=== PATIENT | male | born 1940 | race Two or more races ===

== ENCOUNTER 2017-06-06 07:09 | Outpatient (CLI) | payer OTHER, BC ==
[~2017-06-06 07:09] MED LIST: AMOX1TAB5 PO; ANORO ELLIPTA1 EACH IH; AVALIDE 300-12.1 TAB PO; AVAPRO75 MG PO; CIPRODEX OTIC7.5 ML OT; CRESTOR20 MG; DALIRESP500 MCG PO; EMTRIVA200 MG; EMTRIVA200 MG PO; EPIVIR300 MG PO; FENOFIBRATE145 MG PO; GLIMEPIRIDE4 MG; GLUCOPHAGE XR500 MG PO; LEVAQUIN750 MG PO; NORVIR; NORVIR100 M1 PO; PNEU16DI2; PROTONIX20 MG; RESTORIL30 MG PO; REYATAZ300 MG; REYATAZ300 MG PO; SYNTHROID50 MCG PO; TRADJENTA5 MG PO; VENTOLIN HFA18 GM IH; XANAX0.25 MG PO
== END 2017-06-06 07:53 | disposition home or self-care (01) ==
LOC: LAB 07:09
DX: N18.6 End stage renal disease (principal)

== ENCOUNTER 2017-06-14 06:39 | Outpatient (CLI) | payer OTHER, BC | END 2017-06-14 06:50 | disposition home or self-care (01) | LOC: LAB 06:39 | DX: N18.4 Chronic kidney disease, stage 4 (severe) (principal); E87.5 Hyperkalemia ==

== ENCOUNTER 2017-06-19 06:10 | Outpatient (CLI) | payer OTHER, BC | END 2017-06-19 06:20 | disposition home or self-care (01) | LOC: LAB 06:10 | DX: E11.65 Type 2 diabetes mellitus with hyperglycemia (principal); D64.89 Other specified anemias; D68.8 Other specified coagulation defects; I11.9 Hypertensive heart disease without heart failure; E78.79 Other disorders of bile acid and cholesterol metabolism ==

== ENCOUNTER 2017-06-19 08:01 | Outpatient (CLI) | payer OTHER, BC | END 2017-06-19 08:05 | disposition home or self-care (01) | LOC: RAD 08:01 | DX: M77.31 Calcaneal spur, right foot (principal); M77.32 Calcaneal spur, left foot ==

== ENCOUNTER → 2017-06-21 06:53 | Outpatient (CLI) | payer OTHER, BC | END | disposition home or self-care (01) | LOC: LAB 06:53 | DX: N18.4 Chronic kidney disease, stage 4 (severe) (principal) ==

== ENCOUNTER → 2017-07-15 | Emergency (ER) | payer OTHER, BC ==
[~2017-07-15] VITALS: Ht 177.8 cm; Wt 70.8 kg
[~2017-07-15] MED LIST changes: +ASPIR 8181 MG; +CLARITIN10 M1 PO; +HYDRALAZINE HCL50 MG; +MAG-OXIDE400 MG; +PLAVIX75 MG; +TOPROL XL50 M1; +TUSSI PRES-B L120 M1 PO; +ZITHROMAX TRI-500 MG PO
== END | disposition home or self-care (01) ==
LOC: ER 12:13
DX: J06.9 Acute upper respiratory infection, unspecified (principal); J11.1 Influenza due to unidentified influenza virus with other respiratory manifestations

== ENCOUNTER 2017-07-24 06:29 | Outpatient (CLI) | payer OTHER, BC | END 2017-07-24 06:39 | disposition home or self-care (01) | LOC: LAB 06:29 | DX: I11.9 Hypertensive heart disease without heart failure (principal); E78.00 Pure hypercholesterolemia, unspecified; D68.8 Other specified coagulation defects; E11.65 Type 2 diabetes mellitus with hyperglycemia; Z99.2 Dependence on renal dialysis; E78.2 Mixed hyperlipidemia; N39.0 Urinary tract infection, site not specified; I10 Essential (primary) hypertension; N18.2 Chronic kidney disease, stage 2 (mild); E11.21 Type 2 diabetes mellitus with diabetic nephropathy ==

== ENCOUNTER 2017-08-02 06:28 | Outpatient (CLI) | payer OTHER, BC | END 2017-08-02 06:46 | disposition home or self-care (01) | LOC: LAB 06:28 | DX: D63.1 Anemia in chronic kidney disease (principal); N18.4 Chronic kidney disease, stage 4 (severe); D51.3 Other dietary vitamin B12 deficiency anemia; D50.8 Other iron deficiency anemias; C18.7 Malignant neoplasm of sigmoid colon; B20 Human immunodeficiency virus [HIV] disease; I10 Essential (primary) hypertension; E08.65 Diabetes mellitus due to underlying condition with hyperglycemia; Z95.5 Presence of coronary angioplasty implant and graft; I25.110 Atherosclerotic heart disease of native coronary artery with unstable angina pectoris; D51.8 Other vitamin B12 deficiency anemias; R97.0 Elevated carcinoembryonic antigen [CEA]; R97.8 Other abnormal tumor markers; N40.0 Benign prostatic hyperplasia without lower urinary tract symptoms; I50.89 Other heart failure ==

== ENCOUNTER 2017-08-02 06:38 | Outpatient (CLI) | payer OTHER, BC | END 2017-08-02 06:45 | disposition home or self-care (01) | LOC: LAB 06:38 | DX: J90 Pleural effusion, not elsewhere classified (principal) ==

== ENCOUNTER 2017-08-03 06:35 | Outpatient (CLI) | payer OTHER, BC | END 2017-08-03 06:44 | disposition home or self-care (01) | LOC: SONOGRAMA 06:35 | DX: D63.1 Anemia in chronic kidney disease (principal); N18.4 Chronic kidney disease, stage 4 (severe); D51.3 Other dietary vitamin B12 deficiency anemia; D50.8 Other iron deficiency anemias; C18.7 Malignant neoplasm of sigmoid colon; B20 Human immunodeficiency virus [HIV] disease; I10 Essential (primary) hypertension; E08.65 Diabetes mellitus due to underlying condition with hyperglycemia; Z95.5 Presence of coronary angioplasty implant and graft; Z98.61 Coronary angioplasty status; I25.110 Atherosclerotic heart disease of native coronary artery with unstable angina pectoris; Z85.038 Personal history of other malignant neoplasm of large intestine ==

== ENCOUNTER → 2017-08-10 | Outpatient (CLI) | payer OTHER, BC | END | disposition home or self-care (01) | LOC: LAB 07:55 | DX: E11.65 Type 2 diabetes mellitus with hyperglycemia (principal); E11.21 Type 2 diabetes mellitus with diabetic nephropathy ==

== ENCOUNTER 2017-08-11 07:18 | Outpatient (CLI) | payer OTHER, BC | END 2017-08-11 07:21 | disposition home or self-care (01) | LOC: NUCLEAR 07:18 | DX: I11.9 Hypertensive heart disease without heart failure (principal); I25.10 Atherosclerotic heart disease of native coronary artery without angina pectoris; I24.8 Other forms of acute ischemic heart disease | CPT/HCPCS: 78452; 93017; A9500; J0153 ==

== ENCOUNTER 2017-08-30 22:42 | Emergency (ER) | payer OTHER, BC ==
[~2017-08-30] VITALS: Ht 172.7 cm; Wt 77.1 kg
== END 2017-08-31 02:30 | disposition left against medical advice (07) ==
LOC: ER 22:42
DX: Z53.20 Procedure and treatment not carried out because of patient's decision for unspecified reasons (principal)

== ENCOUNTER 2017-08-31 08:38 | Emergency (ER) | payer OTHER, BC ==
[~2017-08-31] VITALS: Ht 177.8 cm; Wt 71.7 kg
== END 2017-08-31 11:16 | disposition home or self-care (01) ==
LOC: ER 08:38
DX: S80.811A Abrasion, right lower leg, initial encounter (principal); W45.8XXA Other foreign body or object entering through skin, initial encounter; Y93.89 Activity, other specified; Y92.89 Other specified places as the place of occurrence of the external cause; Y99.8 Other external cause status

== ENCOUNTER → 2017-09-05 06:22 | Outpatient (CLI) | payer OTHER, BC | END | disposition home or self-care (01) | LOC: LAB 06:22 | DX: D63.1 Anemia in chronic kidney disease (principal); N18.4 Chronic kidney disease, stage 4 (severe); D51.3 Other dietary vitamin B12 deficiency anemia; D50.8 Other iron deficiency anemias; C18.7 Malignant neoplasm of sigmoid colon; B20 Human immunodeficiency virus [HIV] disease; I10 Essential (primary) hypertension; E08.65 Diabetes mellitus due to underlying condition with hyperglycemia; Z95.5 Presence of coronary angioplasty implant and graft; Z98.61 Coronary angioplasty status; I25.110 Atherosclerotic heart disease of native coronary artery with unstable angina pectoris; N18.3 Chronic kidney disease, stage 3 (moderate); E11.21 Type 2 diabetes mellitus with diabetic nephropathy; R80.8 Other proteinuria ==

== ENCOUNTER → 2017-09-11 06:18 | Outpatient (CLI) | payer OTHER, BC | END | disposition home or self-care (01) | LOC: LAB 06:18 | DX: D68.8 Other specified coagulation defects (principal); D64.89 Other specified anemias; E11.65 Type 2 diabetes mellitus with hyperglycemia; E11.21 Type 2 diabetes mellitus with diabetic nephropathy; E78.2 Mixed hyperlipidemia; B20 Human immunodeficiency virus [HIV] disease ==

== ENCOUNTER 2017-09-13 10:44 | Outpatient (CLI) | payer OTHER, BC | END 2017-09-13 10:51 | disposition home or self-care (01) | LOC: LAB 10:44 | DX: Z12.11 Encounter for screening for malignant neoplasm of colon (principal) ==

== ENCOUNTER 2017-09-18 06:52 | Outpatient (CLI) | payer OTHER, BC | END 2017-09-18 06:56 | disposition home or self-care (01) | LOC: LAB 06:52 | DX: N39.0 Urinary tract infection, site not specified (principal) ==

== ENCOUNTER 2017-09-20 18:53 | Emergency (ER) | payer OTHER, BC ==
[~2017-09-20] VITALS: Ht 177.8 cm; Wt 70.8 kg
== END 2017-09-20 23:56 | disposition home or self-care (01) ==
LOC: ER 18:53
DX: K80.20 Calculus of gallbladder without cholecystitis without obstruction (principal); R19.03 Right lower quadrant abdominal swelling, mass and lump; R10.31 Right lower quadrant pain

== ENCOUNTER 2017-09-30 14:30 | Inpatient (IN) | payer OTHER, BC ==
[~2017-09-30] VITALS: Ht 177.8 cm; Wt 71.7 kg
[2017-10-13] MEDS ORDERED: LEVAQUIN500 MG PO (17:10)
== END 2017-10-13 19:22 | disposition home or self-care (01) | DRG 444 ==
LOC: ER 14:30 → MEDI 20:38
PROC: BW40ZZZ Ultrasonography of Abdomen (ICD-10-PCS; 2017-09-30)
PROC: 30233N1 Transfusion of Nonautologous Red Blood Cells into Peripheral Vein, Percutaneous Approach (ICD-10-PCS; 2017-10-01)
PROC: BF37ZZZ Magnetic Resonance Imaging (MRI) of Pancreas (ICD-10-PCS; 2017-10-02)
PROC: 3E0336Z Introduction of Nutritional Substance into Peripheral Vein, Percutaneous Approach (ICD-10-PCS; 2017-10-02)
PROC: CF1C1ZZ Planar Nuclear Medicine Imaging of Hepatobiliary System, All using Technetium 99m (Tc-99m) (ICD-10-PCS; 2017-10-03)
PROC: 02HV33Z Insertion of Infusion Device into Superior Vena Cava, Percutaneous Approach (ICD-10-PCS; 2017-10-03)
PROC: 0F9430Z Drainage of Gallbladder with Drainage Device, Percutaneous Approach (ICD-10-PCS; principal; 2017-10-05)
DX: K80.00 Calculus of gallbladder with acute cholecystitis without obstruction (principal); B20 Human immunodeficiency virus [HIV] disease; N18.4 Chronic kidney disease, stage 4 (severe); N17.8 Other acute kidney failure; E11.22 Type 2 diabetes mellitus with diabetic chronic kidney disease; Z85.038 Personal history of other malignant neoplasm of large intestine; J43.8 Other emphysema; I13.10 Hypertensive heart and chronic kidney disease without heart failure, with stage 1 through stage 4 chronic kidney disease, or unspecified chronic kidney disease; I25.2 Old myocardial infarction; Z98.61 Coronary angioplasty status; B96.29 Other Escherichia coli [E. coli] as the cause of diseases classified elsewhere; D63.1 Anemia in chronic kidney disease; D51.1 Vitamin B12 deficiency anemia due to selective vitamin B12 malabsorption with proteinuria; D50.0 Iron deficiency anemia secondary to blood loss (chronic)

== ENCOUNTER 2017-10-17 09:38 | Inpatient (IN) | payer OTHER, BC ==
[~2017-10-17] VITALS: Ht 177.8 cm; Wt 70.8 kg
[~2017-10-17 09:38] MED LIST changes: +LEVAQUIN500 MG PO
[2017-10-31] MEDS ORDERED: REYATAZ300 MG PO (14:17)
[2017-10-31] MEDS ORDERED: EMTRIVA200 MG PO (14:18)
[2017-10-31] MEDS ORDERED: ALBUTEROL2.5 MG/3 M IH (14:19)
[2017-10-31] MEDS ORDERED: NORVIR100 M1 PO (14:19)
[2017-10-31] MEDS ORDERED: HYDRALAZINE HCL25 MG PO (14:20)
[2017-10-31] MEDS ORDERED: AMLODIPINE BESYL5 MG PO (14:20)
[2017-10-31] MEDS ORDERED: TRADJENTA5 MG PO (14:30)
== END 2017-10-31 15:40 | disposition home health service (06) | DRG 377 ==
LOC: ER 09:38 → SURH 16:25 → ICU-2 16:25 → ICU 10-19 02:18 → SURH 10-24 20:46 → MEDI 10-24 20:46 → SURH 10-24 20:46
PROC: 30233N1 Transfusion of Nonautologous Red Blood Cells into Peripheral Vein, Percutaneous Approach (ICD-10-PCS; 2017-10-17)
PROC: 4A033R1 Measurement of Arterial Saturation, Peripheral, Percutaneous Approach (ICD-10-PCS; 2017-10-18)
PROC: 02HV33Z Insertion of Infusion Device into Superior Vena Cava, Percutaneous Approach (ICD-10-PCS; 2017-10-19)
PROC: 3E0F7GC Introduction of Other Therapeutic Substance into Respiratory Tract, Via Natural or Artificial Opening (ICD-10-PCS; 2017-10-20)
PROC: 06HM33Z Insertion of Infusion Device into Right Femoral Vein, Percutaneous Approach (ICD-10-PCS; 2017-10-20)
PROC: 3E0436Z Introduction of Nutritional Substance into Central Vein, Percutaneous Approach (ICD-10-PCS; 2017-10-21)
PROC: 0DJ08ZZ Inspection of Upper Intestinal Tract, Via Natural or Artificial Opening Endoscopic (ICD-10-PCS; principal; 2017-10-23)
PROC: 4A12X4Z Monitoring of Cardiac Electrical Activity, External Approach (ICD-10-PCS; 2017-10-24)
PROC: 8E0ZXY6 Isolation (ICD-10-PCS; 2017-10-24)
PROC: BF13YZZ Fluoroscopy of Gallbladder and Bile Ducts using Other Contrast (ICD-10-PCS; 2017-10-25)
PROC: 06PYX3Z Removal of Infusion Device from Lower Vein, External Approach (ICD-10-PCS; 2017-10-26)
PROC: B246ZZZ Ultrasonography of Right and Left Heart (ICD-10-PCS; 2017-10-28)
DX: K92.1 Melena (principal); R57.1 Hypovolemic shock; B20 Human immunodeficiency virus [HIV] disease; D62 Acute posthemorrhagic anemia; N18.4 Chronic kidney disease, stage 4 (severe); N17.8 Other acute kidney failure; I13.0 Hypertensive heart and chronic kidney disease with heart failure and stage 1 through stage 4 chronic kidney disease, or unspecified chronic kidney disease; J44.1 Chronic obstructive pulmonary disease with (acute) exacerbation; E87.0 Hyperosmolality and hypernatremia; K81.0 Acute cholecystitis; I50.30 Unspecified diastolic (congestive) heart failure; E11.22 Type 2 diabetes mellitus with diabetic chronic kidney disease; E87.5 Hyperkalemia; E11.21 Type 2 diabetes mellitus with diabetic nephropathy; I25.2 Old myocardial infarction; E03.8 Other specified hypothyroidism; D63.1 Anemia in chronic kidney disease; D51.8 Other vitamin B12 deficiency anemias; K25.9 Gastric ulcer, unspecified as acute or chronic, without hemorrhage or perforation; K26.9 Duodenal ulcer, unspecified as acute or chronic, without hemorrhage or perforation; K29.80 Duodenitis without bleeding; K29.60 Other gastritis without bleeding; I25.10 Atherosclerotic heart disease of native coronary artery without angina pectoris; Z98.61 Coronary angioplasty status; Z66 Do not resuscitate

== ENCOUNTER 2017-12-01 03:31 | Inpatient (IN) | payer OTHER, BC ==
[~2017-12-01] VITALS: Ht 170.2 cm; Wt 108.9 kg
[~2017-12-01 03:31] MED LIST changes: +ALBUTEROL2.5 MG/3 M IH; +AMLODIPINE BESYL5 MG PO; +HYDRALAZINE HCL25 MG PO
[2018-01-27] MEDS ORDERED: REYATAZ300 MG PO (13:06)
[2018-01-27] MEDS ORDERED: EMTRIVA200 MG PO (13:06)
[2018-01-27] MEDS ORDERED: PLAVIX75 MG PO (13:07)
[2018-01-27] MEDS ORDERED: ALBUTEROL2.5 MG/3 M IH (13:07)
[2018-01-27] MEDS ORDERED: EPIVIR300 MG PO (13:07)
[2018-01-27] MEDS ORDERED: NORVIR100 M1 PO (13:07)
[2018-01-27] MEDS ORDERED: TOPROL XL50 M1 PO (13:09)
[2018-01-27] MEDS ORDERED: CRESTOR20 MG PO (13:09)
[2018-01-27] MEDS ORDERED: LEVOTHYROXINE75 MCG PO (13:12)
[2018-01-27] MEDS ORDERED: FLORANEX TABLE1 EACH PO (13:14)
[2018-01-27] MEDS ORDERED: FOLIVANE-F CAP1 EACH PO (13:16)
[2018-01-27] MEDS ORDERED: ISORDIL10 MG PO (13:18)
== END 2018-01-27 23:04 | disposition home health service (06) | DRG 414 ==
LOC: ER 03:31 → SURH 20:04 → SEC-K 20:04 → SURG 12-02 13:04 → SURH 12-03 10:31 → ICU 12-20 16:33 → MEDI 01-09 19:23 → SURH 01-09 19:23
PROVIDERS: Surgery
PROC: BW40ZZZ Ultrasonography of Abdomen (ICD-10-PCS; 2017-12-01)
PROC: 8E0ZXY6 Isolation (ICD-10-PCS; 2017-12-03)
PROC: BF37ZZZ Magnetic Resonance Imaging (MRI) of Pancreas (ICD-10-PCS; 2017-12-05)
PROC: 3E0336Z Introduction of Nutritional Substance into Peripheral Vein, Percutaneous Approach (ICD-10-PCS; 2017-12-05)
PROC: 02HV33Z Insertion of Infusion Device into Superior Vena Cava, Percutaneous Approach (ICD-10-PCS; 2017-12-06)
PROC: 0FJ44ZZ Inspection of Gallbladder, Percutaneous Endoscopic Approach (ICD-10-PCS; 2017-12-13)
PROC: 0FT40ZZ Resection of Gallbladder, Open Approach (ICD-10-PCS; principal; 2017-12-13 10:30)
PROC: 3E0F7GC Introduction of Other Therapeutic Substance into Respiratory Tract, Via Natural or Artificial Opening (ICD-10-PCS; 2017-12-14)
PROC: 4A033R1 Measurement of Arterial Saturation, Peripheral, Percutaneous Approach (ICD-10-PCS; 2017-12-17)
PROC: 06HM33Z Insertion of Infusion Device into Right Femoral Vein, Percutaneous Approach (ICD-10-PCS; 2017-12-17)
PROC: 5A1955Z Respiratory Ventilation, Greater than 96 Consecutive Hours (ICD-10-PCS; 2017-12-17)
PROC: 0BH17EZ Insertion of Endotracheal Airway into Trachea, Via Natural or Artificial Opening (ICD-10-PCS; 2017-12-17)
PROC: 5A1D70Z Performance of Urinary Filtration, Intermittent, Less than 6 Hours Per Day (ICD-10-PCS; 2017-12-17)
PROC: 30233N1 Transfusion of Nonautologous Red Blood Cells into Peripheral Vein, Percutaneous Approach (ICD-10-PCS; 2017-12-17)
PROC: 4A12X4Z Monitoring of Cardiac Electrical Activity, External Approach (ICD-10-PCS; 2017-12-17)
PROC: 5A09357 Assistance with Respiratory Ventilation, Less than 24 Consecutive Hours, Continuous Positive Airway Pressure (ICD-10-PCS; 2017-12-17)
PROC: 0CJS8ZZ Inspection of Larynx, Via Natural or Artificial Opening Endoscopic (ICD-10-PCS; 2017-12-20)
PROC: 0W9B3ZX Drainage of Left Pleural Cavity, Percutaneous Approach, Diagnostic (ICD-10-PCS; 2017-12-23)
PROC: B246ZZZ Ultrasonography of Right and Left Heart (ICD-10-PCS; 2017-12-23)
PROC: 06HM33Z Insertion of Infusion Device into Right Femoral Vein, Percutaneous Approach (ICD-10-PCS; 2018-01-02)
PROC: 06PYX3Z Removal of Infusion Device from Lower Vein, External Approach (ICD-10-PCS; 2018-01-02)
PROC: 0JB70ZZ Excision of Back Subcutaneous Tissue and Fascia, Open Approach (ICD-10-PCS; 2018-01-09)
PROC: BW28ZZZ Computerized Tomography (CT Scan) of Head (ICD-10-PCS; 2018-01-11)
PROC: BB24ZZZ Computerized Tomography (CT Scan) of Bilateral Lungs (ICD-10-PCS; 2018-01-11)
PROC: 0JB70ZZ Excision of Back Subcutaneous Tissue and Fascia, Open Approach (ICD-10-PCS; 2018-01-19)
PROC: 2W15X6Z Compression of Back using Pressure Dressing (ICD-10-PCS; 2018-01-25)
PROC: 06PY33Z Removal of Infusion Device from Lower Vein, Percutaneous Approach (ICD-10-PCS; 2018-01-26)
DX: K81.0 Acute cholecystitis (principal); L89.153 Pressure ulcer of sacral region, stage 3; B20 Human immunodeficiency virus [HIV] disease; K82.2 Perforation of gallbladder; K65.1 Peritoneal abscess; J95.821 Acute postprocedural respiratory failure; J81.0 Acute pulmonary edema; I50.33 Acute on chronic diastolic (congestive) heart failure; A41.9 Sepsis, unspecified organism; R65.20 Severe sepsis without septic shock; N17.8 Other acute kidney failure; J44.1 Chronic obstructive pulmonary disease with (acute) exacerbation; J90 Pleural effusion, not elsewhere classified; B37.0 Candidal stomatitis; J95.851 Ventilator associated pneumonia; I97.131 Postprocedural heart failure following other surgery; T81.4XXA Infection following a procedure, initial encounter; T82.41XA Breakdown (mechanical) of vascular dialysis catheter, initial encounter; I13.2 Hypertensive heart and chronic kidney disease with heart failure and with stage 5 chronic kidney disease, or end stage renal disease; N18.5 Chronic kidney disease, stage 5; E87.2 Acidosis; I25.10 Atherosclerotic heart disease of native coronary artery without angina pectoris; Z98.61 Coronary angioplasty status; Z79.01 Long term (current) use of anticoagulants; I25.2 Old myocardial infarction; D63.1 Anemia in chronic kidney disease; D51.3 Other dietary vitamin B12 deficiency anemia; E03.8 Other specified hypothyroidism; E11.22 Type 2 diabetes mellitus with diabetic chronic kidney disease; Z85.038 Personal history of other malignant neoplasm of large intestine; I44.0 Atrioventricular block, first degree; B96.1 Klebsiella pneumoniae [K. pneumoniae] as the cause of diseases classified elsewhere; Z16.24 Resistance to multiple antibiotics; D69.59 Other secondary thrombocytopenia; E88.09 Other disorders of plasma-protein metabolism, not elsewhere classified; R13.19 Other dysphagia; B96.5 Pseudomonas (aeruginosa) (mallei) (pseudomallei) as the cause of diseases classified elsewhere; Z78.1 Physical restraint status

== ENCOUNTER → 2018-03-05 07:22 | Outpatient (CLI) | payer OTHER, BC ==
[~2018-03-05 07:22] MED LIST changes: +CRESTOR20 MG PO; +FLORANEX TABLE1 EACH PO; +FOLIVANE-F CAP1 EACH PO; +ISORDIL10 MG PO; +LEVOTHYROXINE75 MCG PO; +PLAVIX75 MG PO; +TOPROL XL50 M1 PO
== END | disposition home or self-care (01) ==
LOC: LAB 07:22
DX: E78.89 Other lipoprotein metabolism disorders (principal); B20 Human immunodeficiency virus [HIV] disease; D64.89 Other specified anemias; Z11.4 Encounter for screening for human immunodeficiency virus [HIV]

== ENCOUNTER 2018-03-28 10:40 | Outpatient (CLI) | payer OTHER, BC | END 2018-03-28 10:45 | disposition home or self-care (01) | LOC: LAB 10:40 | DX: D63.1 Anemia in chronic kidney disease (principal) ==

== ENCOUNTER 2018-04-30 08:12 | Outpatient (CLI) | payer OTHER, BC | END 2018-04-30 08:20 | disposition home or self-care (01) | LOC: LAB 08:12 | DX: D63.1 Anemia in chronic kidney disease (principal); N18.4 Chronic kidney disease, stage 4 (severe); D51.3 Other dietary vitamin B12 deficiency anemia; D50.8 Other iron deficiency anemias; C18.7 Malignant neoplasm of sigmoid colon; B20 Human immunodeficiency virus [HIV] disease; I10 Essential (primary) hypertension; E08.65 Diabetes mellitus due to underlying condition with hyperglycemia; Z95.5 Presence of coronary angioplasty implant and graft; Z98.61 Coronary angioplasty status; I25.110 Atherosclerotic heart disease of native coronary artery with unstable angina pectoris; R97.0 Elevated carcinoembryonic antigen [CEA] ==

== ENCOUNTER 2018-08-03 07:31 | Outpatient (CLI) | payer OTHER, BC | END 2018-08-03 07:40 | disposition home or self-care (01) | LOC: LAB 07:31 | DX: D50.8 Other iron deficiency anemias (principal); D51.8 Other vitamin B12 deficiency anemias; I10 Essential (primary) hypertension; N18.3 Chronic kidney disease, stage 3 (moderate); E11.21 Type 2 diabetes mellitus with diabetic nephropathy; R80.8 Other proteinuria; I11.9 Hypertensive heart disease without heart failure; E78.2 Mixed hyperlipidemia ==

== ENCOUNTER 2018-08-06 07:34 | Outpatient (CLI) | payer OTHER, BC | END 2018-08-06 09:32 | disposition home or self-care (01) | LOC: LAB 07:34 | DX: B20 Human immunodeficiency virus [HIV] disease (principal); Z11.4 Encounter for screening for human immunodeficiency virus [HIV] ==

== ENCOUNTER → 2018-08-30 | Emergency (ER) | payer OTHER, BC ==
[~2018-08-30] VITALS: Ht 177.8 cm; Wt 68.0 kg
== END | disposition left against medical advice (07) ==
LOC: ER 14:34
DX: Z53.20 Procedure and treatment not carried out because of patient's decision for unspecified reasons (principal)

== ENCOUNTER 2018-09-19 15:17 | Emergency (ER) | payer OTHER, BC ==
[~2018-09-19] VITALS: Ht 177.8 cm; Wt 65.8 kg
== END 2018-09-19 19:26 | disposition home or self-care (01) ==
LOC: ER 15:17
DX: D64.89 Other specified anemias (principal); E87.5 Hyperkalemia

== ENCOUNTER 2018-09-21 06:17 | Outpatient (CLI) | payer OTHER, BC | END 2018-09-21 06:22 | disposition home or self-care (01) | LOC: LAB 06:17 | DX: D63.1 Anemia in chronic kidney disease (principal); N18.4 Chronic kidney disease, stage 4 (severe); D51.3 Other dietary vitamin B12 deficiency anemia; D50.8 Other iron deficiency anemias; C18.7 Malignant neoplasm of sigmoid colon; B20 Human immunodeficiency virus [HIV] disease; I10 Essential (primary) hypertension; E08.65 Diabetes mellitus due to underlying condition with hyperglycemia; Z98.61 Coronary angioplasty status; I25.110 Atherosclerotic heart disease of native coronary artery with unstable angina pectoris ==

== ENCOUNTER 2018-09-26 10:57 | Inpatient (IN) | payer OTHER, BC ==
[~2018-09-26] VITALS: Ht 157.5 cm; Wt 65.8 kg
--- NOTE | 2018-09-26 11:07 | NUR ---
PACIENTE ALERTA Y ORIENTADO POR VALE ESFERAS QUIEN REFIERE FATIGAS HACE VARIOS FLEMING, MELENA HACE UN MES Y HGB 8.9 EN LAB REALIZADO EL VIERNES. PACIENTE ES REFERIDO A ER POR DR. MARTINEZ.
--- NOTE | 2018-09-26 12:08 | NUR ---
EVALUA PACIENTE Y ORDENA TX MEDICO DEL CUAL MS PARIKH ORIENTA PACIENTE,EL MISMO REFIERE ENTENDER. COLECTA MUESTRA DE LABORATORIOS LAS CUALES ROTULA Y ENVIA PARA ANALISIS. PACIENTE TOLERA PROCEDIMIENTO.
--- NOTE | 2018-09-26 13:54 | NUR ---
CONSULTA PACIENTE CON MEDICO INTERNISTA .
--- NOTE | 2018-09-26 15:46 | NUR ---
TOMADA MUESTRAS DE BURKE Y ENTREGADAS EN BANCO DE [place] SOLICITANDO 2 UNIDADES DE PRBC YARED ORDENADAS.
== END 2018-10-02 16:30 | disposition home or self-care (01) | DRG 378 ==
LOC: ER 10:57 → MEDI 18:59
PROVIDERS: ADMIT Specialist
PROC: 30233N1 Transfusion of Nonautologous Red Blood Cells into Peripheral Vein, Percutaneous Approach (ICD-10-PCS; principal; 2018-09-26)
DX: K92.1 Melena (principal); D62 Acute posthemorrhagic anemia; B20 Human immunodeficiency virus [HIV] disease; N18.4 Chronic kidney disease, stage 4 (severe); N17.8 Other acute kidney failure; I13.0 Hypertensive heart and chronic kidney disease with heart failure and stage 1 through stage 4 chronic kidney disease, or unspecified chronic kidney disease; E03.8 Other specified hypothyroidism; I12.9 Hypertensive chronic kidney disease with stage 1 through stage 4 chronic kidney disease, or unspecified chronic kidney disease; E11.22 Type 2 diabetes mellitus with diabetic chronic kidney disease; Z79.4 Long term (current) use of insulin; Z92.89 Personal history of other medical treatment; Z85.038 Personal history of other malignant neoplasm of large intestine; Z08 Encounter for follow-up examination after completed treatment for malignant neoplasm; I25.10 Atherosclerotic heart disease of native coronary artery without angina pectoris

== ENCOUNTER 2018-10-15 07:14 | Outpatient (CLI) | payer OTHER, BC | END 2018-10-15 09:11 | disposition home or self-care (01) | LOC: LAB 07:14 | DX: E11.65 Type 2 diabetes mellitus with hyperglycemia (principal); D64.89 Other specified anemias ==

== ENCOUNTER 2018-11-11 13:58 | Inpatient (IN) | payer OTHER, BC ==
[~2018-11-11] VITALS: Ht 177.8 cm; Wt 68.0 kg
[2018-11-11] MEDS ORDERED: PROTONIX20 MG (14:21)
[2018-11-11] MEDS ORDERED: ZANTAC300 MG (14:21)
--- NOTE | 2018-11-11 14:21 | NUR ---
SE RECIBE PTE. MASCULINO AKERTA CONCIENTE Y ORIENTADO EN SILLA DE BOWERS ACOMPANDO POR AMIGO. QUE REFIERE TAM PTE. EN PISO. PTE. REFIERE VISHAL AL PISO RECIBIENDO TRAUMA EN CADERA RT. Y LADO RT MERARY REFIERE EL DOLOR ES LIND CHILANGO QUE NO PUEDE FIRE DEPARTMENT BATTALION CHIEF LA CADERA. SE LE DA LOCAL CARE Y PASA A AREA DE OBSEVACION
--- NOTE | 2018-11-11 15:46 | NUR ---
SE RECIBE MASCULINO ALERTA Y ORIENTADO POR VALE ESFERAS, EN WEST. SE NAS MUESTRAS DE LABORATORIO ORDENADAS. SE CANALIZA CON AREA DE VENOPUNCION BARTOLO DE EDEMA O ENROJECIMIENTO. SE MANTIENE EN OBSERVACION POR CAMBIOS.
== END 2018-11-19 18:31 | DRG 470 ==
LOC: ER 13:58 → MEDI 20:16 → SURH 20:16
PROVIDERS: Orthopaedic Surgery; ADMIT Specialist
PROC: B020ZZZ Computerized Tomography (CT Scan) of Brain (ICD-10-PCS; 2018-11-11)
PROC: 3E0F7GC Introduction of Other Therapeutic Substance into Respiratory Tract, Via Natural or Artificial Opening (ICD-10-PCS; 2018-11-11)
PROC: 30233N1 Transfusion of Nonautologous Red Blood Cells into Peripheral Vein, Percutaneous Approach (ICD-10-PCS; 2018-11-12)
PROC: 4A12X4Z Monitoring of Cardiac Electrical Activity, External Approach (ICD-10-PCS; 2018-11-12)
PROC: 0SRR0JA Replacement of Right Hip Joint, Femoral Surface with Synthetic Substitute, Uncemented, Open Approach (ICD-10-PCS; principal; 2018-11-14 07:00)
DX: S72.041A Displaced fracture of base of neck of right femur, initial encounter for closed fracture (principal); I25.810 Atherosclerosis of coronary artery bypass graft(s) without angina pectoris; S05.41XA Penetrating wound of orbit with or without foreign body, right eye, initial encounter; N17.8 Other acute kidney failure; D68.318 Other hemorrhagic disorder due to intrinsic circulating anticoagulants, antibodies, or inhibitors; K25.3 Acute gastric ulcer without hemorrhage or perforation; E11.22 Type 2 diabetes mellitus with diabetic chronic kidney disease; I12.9 Hypertensive chronic kidney disease with stage 1 through stage 4 chronic kidney disease, or unspecified chronic kidney disease; N18.3 Chronic kidney disease, stage 3 (moderate); Z79.4 Long term (current) use of insulin; E87.5 Hyperkalemia; D63.1 Anemia in chronic kidney disease; S70.01XA Contusion of right hip, initial encounter; E03.8 Other specified hypothyroidism; Z88.2 Allergy status to sulfonamides; Z21 Asymptomatic human immunodeficiency virus [HIV] infection status; I11.9 Hypertensive heart disease without heart failure; E11.65 Type 2 diabetes mellitus with hyperglycemia; M81.0 Age-related osteoporosis without current pathological fracture; M16.11 Unilateral primary osteoarthritis, right hip

== ENCOUNTER 2018-12-05 14:14 | Inpatient (IN) | payer OTHER, BC ==
[~2018-12-05] VITALS: Ht 177.8 cm; Wt 68.0 kg
[~2018-12-05 14:14] MED LIST changes: +ZANTAC300 MG
--- NOTE | 2018-12-05 15:07 | NUR ---
SE RECIBE MASCULINO ALERTA Y ORIENTADO POR VALE ESFERAS, EN SILLA DE VLAD. REFIERE QUE FUE REFERIDO POR DR. STANTON POR ANEMIA Y MARIXA ULCERA EN EL PIE DERECHO.
--- NOTE | 2018-12-05 16:18 | NUR ---
PT ALERTA Y ORIENTADO X3 ESFERAS SE LE ORIENTA SOBRE TX Y REFIERE ENTEDER. SE NAS MUESTRAS DE BURKE Y VENOPUNCION CON TECNICAS ASEPTICAS. PENDIENTE RESULTADOS DE HMG EN BURKE. PT TOLERA TX. SE MANTIENE BAJO OBSERVACION POR CAMBIOS EN [place]. PT MANEJADO POR MR GOMEZ.
== END 2018-12-13 14:43 | disposition home or self-care (01) | DRG 623 ==
LOC: ER 14:14 → MEDJ 18:52
PROVIDERS: ADMIT Specialist
PROC: 30233N1 Transfusion of Nonautologous Red Blood Cells into Peripheral Vein, Percutaneous Approach (ICD-10-PCS; 2018-12-06)
PROC: B44FZZZ Ultrasonography of Right Lower Extremity Arteries (ICD-10-PCS; 2018-12-06)
PROC: B54BZZZ Ultrasonography of Right Lower Extremity Veins (ICD-10-PCS; 2018-12-06)
PROC: 0JBQ0ZZ Excision of Right Foot Subcutaneous Tissue and Fascia, Open Approach (ICD-10-PCS; principal; 2018-12-08)
PROC: 8E0ZXY6 Isolation (ICD-10-PCS; 2018-12-10)
PROC: 0DJ08ZZ Inspection of Upper Intestinal Tract, Via Natural or Artificial Opening Endoscopic (ICD-10-PCS; 2018-12-12)
DX: E11.621 Type 2 diabetes mellitus with foot ulcer (principal); I12.0 Hypertensive chronic kidney disease with stage 5 chronic kidney disease or end stage renal disease; B20 Human immunodeficiency virus [HIV] disease; L03.115 Cellulitis of right lower limb; I96 Gangrene, not elsewhere classified; D62 Acute posthemorrhagic anemia; K92.1 Melena; L97.512 Non-pressure chronic ulcer of other part of right foot with fat layer exposed; L89.612 Pressure ulcer of right heel, stage 2; Z79.4 Long term (current) use of insulin; E11.22 Type 2 diabetes mellitus with diabetic chronic kidney disease; N18.5 Chronic kidney disease, stage 5; N17.8 Other acute kidney failure; D63.1 Anemia in chronic kidney disease; I25.10 Atherosclerotic heart disease of native coronary artery without angina pectoris; E03.8 Other specified hypothyroidism; Z88.2 Allergy status to sulfonamides; Z85.038 Personal history of other malignant neoplasm of large intestine; Z08 Encounter for follow-up examination after completed treatment for malignant neoplasm; Z95.5 Presence of coronary angioplasty implant and graft; E11.21 Type 2 diabetes mellitus with diabetic nephropathy; B96.5 Pseudomonas (aeruginosa) (mallei) (pseudomallei) as the cause of diseases classified elsewhere; B95.2 Enterococcus as the cause of diseases classified elsewhere; E87.5 Hyperkalemia; E86.0 Dehydration; E87.8 Other disorders of electrolyte and fluid balance, not elsewhere classified; K29.00 Acute gastritis without bleeding

== ENCOUNTER → 2018-12-17 | Outpatient (CLI) | payer OTHER, BC | END | disposition home or self-care (01) | LOC: WOUND MED 10:06 | DX: E11.621 Type 2 diabetes mellitus with foot ulcer (principal); L97.512 Non-pressure chronic ulcer of other part of right foot with fat layer exposed | CPT/HCPCS: 11042; G0463; A4554; A4930; A6212; A6216 ==

== ENCOUNTER → 2018-12-24 | Outpatient (CLI) | payer OTHER, BC | END | disposition home or self-care (01) | LOC: WOUND MED 07:15 | DX: E11.621 Type 2 diabetes mellitus with foot ulcer (principal); L97.513 Non-pressure chronic ulcer of other part of right foot with necrosis of muscle | CPT/HCPCS: 11042; A4554; A4930; A6216; A6219 ==

== ENCOUNTER 2018-12-31 18:09 | Inpatient (IN) | payer OTHER, BC ==
[~2018-12-31] VITALS: Ht 177.8 cm; Wt 72.6 kg
--- NOTE | 2018-12-31 19:07 | NUR ---
PT REFIERE FATIGA DESDE HACE 3 FLEMING. SE OBSERVAN 29 RESPIRACIONES CON USO DE MUSCULOS ACCESORIOS ABDOMINALES. PT SAO2 98%. PTE CON PITTING EDEMA EN ETREMIDADES INFERIORES Y EDEMA EN EXTREMIDADES SUPERIORES. SE PRESENTA A DR RODGERS QUIEN ORDENA UBICAR A PT EN CRITICO. AL MOMENTO UNIDAD NO TIENE ESPACIO DISPONIBLE, SE UBICA A PT EN K8 EN OBSERVACION CONECTADO A MONITOR CARDIACO Y OXIMETRIA DE PULSO. SE LE REALIZA EKG Y SE PRESENTA A DR RODGERS.
--- NOTE | 2018-12-31 19:27 | NUR ---
SE LLAMA A TERAPIA RESPIRATORIA Y SE NOTIFCA ABG Y TERAPIA A LA SHARI SANCHEZ
--- NOTE | 2018-12-31 19:30 | NUR ---
SE ORIENTA PTE Y FAMILIAR SOBRE EL TRATAMIENTO ORDENADO POR EL DR RODGERS SE REALIZAN MUESTRAS DE LABORATORIO POR CHRIST SIERRA SE OBSERVA PTE CON DIFICULTAD RESPIRATORIA CON EDEMA EN LA EXTREMIDADES INFERIORES, SE ADMINISTRAN MEDICAMENTO YARED ORDENADO, SE CONECTA A MONTOR CARDIACO Y OXYMETRIA DE PULSO CHRIST SIERRA CANALIZA PTE EN EL BRAZO DERECHO SE OBSERVA VENOPUNCION PATENTE Y BARTOLO DE EDEMA SE NOTIFICA TERAPIARA RESPIRATORIA. PTE SE MANTIENE EN OBSERVACION Y BAJO DE TRATAMIENTO.
--- NOTE | 2018-12-31 20:19 | NUR ---
SE OBSERVA PTE DESATURANDO SE NOTIFICA AL DR RODGERS Y SE VUELVE A LLAMA A TERAPIA RESPIRATORIA SE TRASLADA PTE EN CAMA PARA LA UNIDAD DE CRITICO Y SE UBICA EN EL CUBICULO #1
--- NOTE | 2018-12-31 20:48 | NUR ---
SE RECIBE PACEITNE EN AREA DE ICU 2 EL CUAL ES COLOCADO POR ROSETTA CAVANAUGH SUP.DE TURNO.SE CONECTA A MONITOR CARDIACO CON SATUROMETRO Y OXIGENO A 3 LITROS POR CANULA NASAL.SE ORIENTA PACEINTE A ACOSTARSE SANGEETA INDICA QUE PERMANECERA SENTADO POR QUE SE LE DIFICULTA EL RESPIRAR AL ACOSTARSE.PACEITNE FUE ORIENTADO Y RECIBIO TRATAMIENTO YARED ORDEN MEDICA EN AREA DE K-8.SE CONTINUA MONITOREAN- DO POR CAMBIOS SIGNIFICATIVOS.
--- NOTE | 2018-12-31 23:33 | NUR ---
SE RECIBE PACIENTE ALERTA Y ORIENTADO X3 EN CAMA CONECTADO A TELEMTRIA Y OXIMETRIA. PACIENTE MUESTRA BUEN PATRON RESPIRATORIO Y ABDOMEN BLANDO. PACIENTE MUESTRA AMBAS PIERNAS INFLAMMADAS Y REFIRE MUCHO DOLOR EN LAS MISMAS. PACIENTE MUESTRA PRESION ELEVADO. PACIENTE MUESTRA TRIDIL A 6 ML/HR. PACIENTE MUESTRA LINEA IV PATENTES Y AREA DE VENOPUNCION BARTOLO DE EDMA Y ENROJECIMIENTO. PACIENTE SE MANTIEN BAJO OBSERVACION CRITICO PARA CAMBIOS SIGNIFICATIVOS.
--- NOTE | 2019-01-01 05:00 | NUR ---
SE LE JUAN TYLENOL 1GM PO AL PACIENTE DEBIDO AL DOLOR DE NESTOR.
--- NOTE | 2019-01-01 07:19 | NUR ---
SE RECIBE PTE DEL TURNO ANTERIOR ALERTA Y ORIENTADO X3 EN CAMA 1 DE ICU DE SE. PTE CONECTADO A MONITOR CARDIACO Y OXIMETRIA. SE OBSERVA CON BUEN PATRON RESPIRATORIO ASISTIDO CON CANULA NASAL @ 3 LTS. AREA DE VENOPUNCION EN R+ BARTOLO DE EDEMA Y ENROJECIMIENTO RECIBIENDO TRIDIL 50/250 @ 6ML/HR. SE MANTIENE CON CABECERA A 45 GRADOS, BARANDAS ELEVADAS Y TIMBRE ACCESIBLE. SE MANTIENE EN OBSERVACION POR CAMBIOS EN CONDICION.
== END 2019-01-18 13:30 | disposition home or self-care (01) | DRG 291 ==
LOC: ER 18:09 → MEDJ 01-01 13:33 → ICU-2 01-01 13:33 → ICU 01-02 20:58 → MEDJ 01-05 11:11
PROVIDERS: ADMIT Specialist
PROC: B246ZZZ Ultrasonography of Right and Left Heart (ICD-10-PCS; principal; 2019-01-01)
PROC: 3E0F7GC Introduction of Other Therapeutic Substance into Respiratory Tract, Via Natural or Artificial Opening (ICD-10-PCS; 2019-01-01)
PROC: 4A033R1 Measurement of Arterial Saturation, Peripheral, Percutaneous Approach (ICD-10-PCS; 2019-01-01)
PROC: 02HV33Z Insertion of Infusion Device into Superior Vena Cava, Percutaneous Approach (ICD-10-PCS; 2019-01-01)
PROC: 0T9B70Z Drainage of Bladder with Drainage Device, Via Natural or Artificial Opening (ICD-10-PCS; 2019-01-01)
PROC: 05HY33Z Insertion of Infusion Device into Upper Vein, Percutaneous Approach (ICD-10-PCS; 2019-01-03)
PROC: 5A1D70Z Performance of Urinary Filtration, Intermittent, Less than 6 Hours Per Day (ICD-10-PCS; 2019-01-03)
PROC: 4A12X4Z Monitoring of Cardiac Electrical Activity, External Approach (ICD-10-PCS; 2019-01-05)
PROC: 8E0ZXY6 Isolation (ICD-10-PCS; 2019-01-09)
PROC: 05HM33Z Insertion of Infusion Device into Right Internal Jugular Vein, Percutaneous Approach (ICD-10-PCS; 2019-01-11)
DX: I11.0 Hypertensive heart disease with heart failure (principal); N18.6 End stage renal disease; R57.1 Hypovolemic shock; J96.01 Acute respiratory failure with hypoxia; K82.2 Perforation of gallbladder; B20 Human immunodeficiency virus [HIV] disease; E87.4 Mixed disorder of acid-base balance; N04.8 Nephrotic syndrome with other morphologic changes; N17.8 Other acute kidney failure; N39.0 Urinary tract infection, site not specified; K92.1 Melena; L97.412 Non-pressure chronic ulcer of right heel and midfoot with fat layer exposed; I08.3 Combined rheumatic disorders of mitral, aortic and tricuspid valves; I25.10 Atherosclerotic heart disease of native coronary artery without angina pectoris; I50.43 Acute on chronic combined systolic (congestive) and diastolic (congestive) heart failure; I13.2 Hypertensive heart and chronic kidney disease with heart failure and with stage 5 chronic kidney disease, or end stage renal disease; D63.1 Anemia in chronic kidney disease; E11.621 Type 2 diabetes mellitus with foot ulcer; E11.649 Type 2 diabetes mellitus with hypoglycemia without coma; E11.22 Type 2 diabetes mellitus with diabetic chronic kidney disease; B96.1 Klebsiella pneumoniae [K. pneumoniae] as the cause of diseases classified elsewhere; R31.0 Gross hematuria; R31.29 Other microscopic hematuria; Z79.4 Long term (current) use of insulin; Z85.038 Personal history of other malignant neoplasm of large intestine; Z08 Encounter for follow-up examination after completed treatment for malignant neoplasm; Z95.5 Presence of coronary angioplasty implant and graft

== ENCOUNTER → 2018-12-31 | Outpatient (CLI) | payer OTHER, BC | END | disposition still patient (30) | LOC: WOUND MED 08:00 | DX: E11.621 Type 2 diabetes mellitus with foot ulcer (principal); L97.412 Non-pressure chronic ulcer of right heel and midfoot with fat layer exposed | CPT/HCPCS: 11042; A4554; A4930; A6216; A6219 ==

== ENCOUNTER 2019-03-01 07:44 | Emergency (ER) | payer OTHER, BC ==
[~2019-03-01] VITALS: Ht 177.8 cm; Wt 70.3 kg
== END 2019-03-01 13:58 | disposition home or self-care (01) ==
LOC: ER 07:44
DX: E11.22 Type 2 diabetes mellitus with diabetic chronic kidney disease (principal); I12.0 Hypertensive chronic kidney disease with stage 5 chronic kidney disease or end stage renal disease; N18.6 End stage renal disease; D63.1 Anemia in chronic kidney disease; B20 Human immunodeficiency virus [HIV] disease; R53.83 Other fatigue; Z79.4 Long term (current) use of insulin

== ENCOUNTER 2019-03-19 07:05 | Outpatient (CLI) | payer OTHER, BC | END 2019-03-19 07:12 | disposition home or self-care (01) | LOC: LAB 07:05 | DX: E78.49 Other hyperlipidemia (principal); B20 Human immunodeficiency virus [HIV] disease; Z11.4 Encounter for screening for human immunodeficiency virus [HIV] ==

== ENCOUNTER 2019-08-27 12:13 | Emergency (ER) | payer OTHER ==
[~2019-08-27] VITALS: Ht 177.8 cm; Wt 71.7 kg
[2019-08-27] MEDS ORDERED: INTEGRA PLUS C1 EACH (13:41)
[2019-08-27] MEDS ORDERED: PROTONIX40 MG (13:41)
[2019-08-27] MEDS ORDERED: FOLIC ACID20 MG (13:41)
[2019-08-27] MEDS ORDERED: ROSUVASTATIN CA20 MG (13:42)
[2019-08-27] MEDS ORDERED: PRIMIDONE250 MG (13:42)
== END 2019-08-27 21:57 | disposition home or self-care (01) ==
LOC: ER 12:13
DX: J06.9 Acute upper respiratory infection, unspecified (principal); R06.02 Shortness of breath; N19 Unspecified kidney failure

== ENCOUNTER 2019-12-14 08:46 | Emergency (ER) | payer OTHER ==
[~2019-12-14] VITALS: Ht 177.8 cm; Wt 71.7 kg
[~2019-12-14 08:46] MED LIST changes: +FOLIC ACID20 MG; +INTEGRA PLUS C1 EACH; +PRIMIDONE250 MG; +PROTONIX40 MG; +ROSUVASTATIN CA20 MG
== END 2019-12-14 13:01 | disposition home or self-care (01) ==
LOC: ER 08:46
DX: N39.0 Urinary tract infection, site not specified (principal); R31.0 Gross hematuria; E11.22 Type 2 diabetes mellitus with diabetic chronic kidney disease; N18.6 End stage renal disease

== ENCOUNTER 2019-12-15 18:40 | Emergency (ER) | payer OTHER ==
[~2019-12-15] VITALS: Ht 177.8 cm; Wt 71.7 kg
== END 2019-12-16 00:41 | disposition home or self-care (01) ==
LOC: ER 18:40
DX: N13.39 Other hydronephrosis (principal); R10.11 Right upper quadrant pain; E11.22 Type 2 diabetes mellitus with diabetic chronic kidney disease; I12.0 Hypertensive chronic kidney disease with stage 5 chronic kidney disease or end stage renal disease; N18.6 End stage renal disease; Z99.2 Dependence on renal dialysis; Z79.84 Long term (current) use of oral hypoglycemic drugs

== ENCOUNTER 2019-12-31 09:24 | Outpatient (CLI) | payer OTHER | END 2019-12-31 09:34 | disposition home or self-care (01) | LOC: RAD 09:24 | PROVIDERS: ATTEND Physical Medicine & Rehabilitation | DX: M54.5 Low back pain (principal) ==

== ENCOUNTER → 2020-02-25 07:23 | Outpatient (CLI) | payer OTHER | END | disposition home or self-care (01) | LOC: LAB 07:23 | PROVIDERS: ATTEND Specialist | DX: B20 Human immunodeficiency virus [HIV] disease (principal); Z11.4 Encounter for screening for human immunodeficiency virus [HIV] ==

== ENCOUNTER 2020-02-25 07:57 | Outpatient (CLI) | payer OTHER | END 2020-02-25 07:59 | disposition home or self-care (01) | LOC: RAD 07:57 | PROVIDERS: ATTEND Physical Medicine & Rehabilitation | DX: M54.2 Cervicalgia (principal) ==

== ENCOUNTER 2020-05-20 10:56 | Emergency (ER) | payer OTHER ==
[~2020-05-20] VITALS: Ht 177.8 cm; Wt 74.8 kg
[2020-05-20] MEDS ORDERED: ULTRAM50 MG PO (14:59)
== END 2020-05-20 15:08 | disposition home or self-care (01) ==
LOC: ER 10:56
DX: R31.29 Other microscopic hematuria (principal); Z20.828 Contact with and (suspected) exposure to other viral communicable diseases

== ENCOUNTER 2020-06-18 22:28 | Emergency (ER) | payer OTHER ==
[~2020-06-18] VITALS: Ht 177.8 cm; Wt 74.8 kg
[~2020-06-18 22:28] MED LIST changes: +ULTRAM50 MG PO
[2020-06-18] MEDS ORDERED: PANTOPRAZOLE SO40 MG PO (22:35)
[2020-06-18] MEDS ORDERED: SYNTHROID75 MCG PO (22:35)
[2020-06-18] MEDS ORDERED: FOLIC ACID1 MG PO (22:35)
[2020-06-18] MEDS ORDERED: PHOSLO667 M1 PO (22:36)
[2020-06-18] MEDS ORDERED: GABAPENTIN100 M2 PO (22:36)
[2020-06-18] MEDS ORDERED: FENOFIBRATE54 MG PO (22:36)
[2020-06-18] MEDS ORDERED: ISOSORBIDE MONO30 M2 PO (22:36)
== END 2020-06-19 15:19 | disposition home or self-care (01) ==
LOC: ER 22:28
DX: N13.4 Hydroureter (principal); N20.0 Calculus of kidney; K80.80 Other cholelithiasis without obstruction; R31.0 Gross hematuria; N50.812 Left testicular pain; R10.32 Left lower quadrant pain; I12.0 Hypertensive chronic kidney disease with stage 5 chronic kidney disease or end stage renal disease; N18.6 End stage renal disease; Z03.818 Encounter for observation for suspected exposure to other biological agents ruled out; Z99.2 Dependence on renal dialysis

== ENCOUNTER 2020-08-11 07:47 | Outpatient (CLI) | payer OTHER ==
[~2020-08-11 07:47] MED LIST changes: +FENOFIBRATE54 MG PO; +FOLIC ACID1 MG PO; +GABAPENTIN100 M2 PO; +ISOSORBIDE MONO30 M2 PO; +PANTOPRAZOLE SO40 MG PO; +PHOSLO667 M1 PO; +SYNTHROID75 MCG PO
== END 2020-08-11 07:51 | disposition home or self-care (01) ==
LOC: LAB 07:47
PROVIDERS: ATTEND Internal Medicine Infectious Disease
DX: B20 Human immunodeficiency virus [HIV] disease (principal); N20.0 Calculus of kidney

== ENCOUNTER 2020-10-13 07:38 | Outpatient (CLI) | payer OTHER | END 2020-10-13 07:42 | disposition home or self-care (01) | LOC: LAB 07:38 | PROVIDERS: ATTEND Internal Medicine Infectious Disease | DX: B20 Human immunodeficiency virus [HIV] disease (principal) ==

== ENCOUNTER 2020-12-18 06:12 | Emergency (ER) | payer OTHER ==
[~2020-12-18] VITALS: Ht 177.8 cm; Wt 75.3 kg
== END 2020-12-18 14:30 | disposition home or self-care (01) ==
LOC: ER 06:12 → CPU-OBS 06:15 → ER 06:15
DX: B20 Human immunodeficiency virus [HIV] disease (principal); R07.89 Other chest pain; I13.10 Hypertensive heart and chronic kidney disease without heart failure, with stage 1 through stage 4 chronic kidney disease, or unspecified chronic kidney disease; D63.1 Anemia in chronic kidney disease; N18.4 Chronic kidney disease, stage 4 (severe); Z20.822 Contact with and (suspected) exposure to COVID-19

== ENCOUNTER 2021-02-12 06:50 | Inpatient (IN) | payer OTHER ==
[~2021-02-12] VITALS: Ht 177.8 cm; Wt 74.8 kg
[2021-02-12] MEDS ORDERED: JANUVIA25 MG PO (07:23)
--- NOTE | 2021-02-12 07:24 | NUR ---
SE RECIBE PTE ALERTA Y ORIENTADO X3,REFIERE TENER LA HEMOGLOBINA BAJA EN 7.5,REFIERE QUE ES PTE DE DIALISIS Y NO LO DEJARON MIKE LA DIALISIS HOY POR LA HEMOGLOBINA,PAGAN DR,KYRIE STANTON.
--- NOTE | 2021-02-12 10:31 | NUR ---
SE EJECUTA ORDEN MEDICA DE DR. OLIVARES. SE LE REALIZAN A PACIENTE MUESTRAS DE BUR[place] BAJO MEDIDAS ASEPTICAS. SE REALIZA PROCEDIMIENTO PARA REQUISAR UNIDADES EN HOLD. LA MISMA CUENTA CON 2 UNITS FRACCIONADAS. SE REALIZO LLAMADA A BANCO DE [place] Y PACIENTE AL MOMENTO CUENTA CON EXPEDIENTE PREVIO EN BANCO . LA INFORMACION FUE OFRECIDA POR SR. MULLER DE BANCO DE [place]. AL MOMENTO PACIENTE NO SE LOGRA CANALIZAR Y ESTA PENDIENTE DE MIKE VENOPUNCION.
--- NOTE | 2021-02-12 10:35 | NUR ---
COSULTAS YA ESTA NOTIFICADAS. SE AMNTIENEE A PACIENTE EN OBSERVACION POR CAMBIOS EN CONDICION Y CONTINUIDAD DE SUSAN.
--- NOTE | 2021-02-12 10:36 | NUR ---
PACIENTE FIRMA CONSENTIMIENTO DE TRANFUCION Y ES ADEMAS FIRMADO POR MEDICO.
--- NOTE | 2021-02-12 11:48 | NUR ---
SE REALIZA NUEVAMENTE HOJA DE REQUISION DE BUR[place] PARA NUEVA ORDEN DE DR. CAMPBELL CUAL ORDENA TRANFUNDIR INTRADIALISIS 2 UNIDADES DE PRBC COMPLETAS. SE ENVIA NUEVA ORDEN A BANCO DE B[place].
== END 2021-02-13 15:15 | disposition home or self-care (01) | DRG 811 ==
LOC: ER 06:50 → ICU-2 14:25
PROVIDERS: ADMIT Specialist; ATTEND Specialist
PROC: 30243N1 Transfusion of Nonautologous Red Blood Cells into Central Vein, Percutaneous Approach (ICD-10-PCS; principal; 2021-02-12)
PROC: 5A1D70Z Performance of Urinary Filtration, Intermittent, Less than 6 Hours Per Day (ICD-10-PCS; 2021-02-12)
DX: D64.9 Anemia, unspecified (principal); N18.6 End stage renal disease; I13.2 Hypertensive heart and chronic kidney disease with heart failure and with stage 5 chronic kidney disease, or end stage renal disease; I50.32 Chronic diastolic (congestive) heart failure; E11.22 Type 2 diabetes mellitus with diabetic chronic kidney disease; D63.1 Anemia in chronic kidney disease; Z99.2 Dependence on renal dialysis; Z79.4 Long term (current) use of insulin; Z21 Asymptomatic human immunodeficiency virus [HIV] infection status; Z20.822 Contact with and (suspected) exposure to COVID-19

== ENCOUNTER 2021-03-26 14:50 | Inpatient (IN) | payer OTHER ==
[~2021-03-26] VITALS: Ht 177.8 cm; Wt 75.3 kg
[~2021-03-26 14:50] MED LIST changes: +JANUVIA25 MG PO
--- NOTE | 2021-03-26 15:10 | NUR ---
SE RECIBE PACIENTE MASCULINO DE 81 ANOS DE EDAD DESPIERTO Y ALERTA CON QUEJA PRINCIPAL DE FATIGA Y PRESION EN EL PECHO DESDE HACE 2 FLEMING. REFIERE SER PACIENTE DE DIALISIS.
--- NOTE | 2021-03-26 16:59 | NUR ---
SE ORIENTA PTE SOBRE EL TRATAMIENTO ORDENADO POR EL DR TurnerTORRES PTE ALERTA Y ORIENTADO POR 3 RN.COVARRUBIAS REALIZA MUESTAS DE LABORATORIO Y SE CONECTA A MONITOR CARDIACO.
== END 2021-03-31 11:46 | disposition designated cancer center or children's hospital (05) | DRG 311 ==
LOC: ER 14:50 → ICU-2 23:13 → MEDI 23:13 → SEC-K 03-28 13:26 → MEDI 03-28 16:11
PROVIDERS: ADMIT Specialist; ATTEND Specialist
PROC: 02HV33Z Insertion of Infusion Device into Superior Vena Cava, Percutaneous Approach (ICD-10-PCS; principal; 2021-03-28)
PROC: 4A12X4Z Monitoring of Cardiac Electrical Activity, External Approach (ICD-10-PCS; 2021-03-28)
DX: I24.9 Acute ischemic heart disease, unspecified (principal); N18.6 End stage renal disease; I12.0 Hypertensive chronic kidney disease with stage 5 chronic kidney disease or end stage renal disease; Z99.2 Dependence on renal dialysis; Z21 Asymptomatic human immunodeficiency virus [HIV] infection status; E11.21 Type 2 diabetes mellitus with diabetic nephropathy; D63.1 Anemia in chronic kidney disease

== ENCOUNTER 2021-04-09 11:16 | Emergency (ER) | payer OTHER ==
[~2021-04-09] VITALS: Ht 177.8 cm; Wt 75.3 kg
== END 2021-04-09 13:40 | disposition home or self-care (01) ==
LOC: ER 11:16
DX: Z45.2 Encounter for adjustment and management of vascular access device (principal)

== ENCOUNTER 2021-05-29 14:06 | Emergency (ER) | payer OTHER ==
[~2021-05-29] VITALS: Ht 177.8 cm; Wt 75.3 kg
== END 2021-05-29 17:01 | disposition home or self-care (01) ==
LOC: ER 14:06
DX: S80.812A Abrasion, left lower leg, initial encounter (principal); W45.8XXA Other foreign body or object entering through skin, initial encounter; Y93.89 Activity, other specified; Y92.512 Supermarket, store or market as the place of occurrence of the external cause; Y99.8 Other external cause status

== ENCOUNTER 2021-06-07 08:35 | Emergency (ER) | payer OTHER ==
[~2021-06-07] VITALS: Ht 177.8 cm; Wt 73.0 kg
== END 2021-06-08 12:43 | disposition home or self-care (01) ==
LOC: ER 08:35
DX: N18.6 End stage renal disease (principal); D63.1 Anemia in chronic kidney disease; D63.8 Anemia in other chronic diseases classified elsewhere; Z11.52 Encounter for screening for COVID-19

== ENCOUNTER 2021-06-15 07:56 | Outpatient (CLI) | payer OTHER | END 2021-06-15 08:06 | disposition home or self-care (01) | LOC: LAB 07:56 | PROVIDERS: ATTEND Internal Medicine Infectious Disease | DX: D64.89 Other specified anemias (principal) ==

== ENCOUNTER 2021-06-16 12:25 | Inpatient (IN) | payer OTHER ==
[~2021-06-16] VITALS: Ht 177.8 cm; Wt 75.3 kg
[2021-06-21] MEDS ORDERED: ST. JOSEPH ASPI81 M2 (08:36)
[2021-06-21] MEDS ORDERED: ALLERGY RELIEF10 M1 (08:36)
[2021-06-21] MEDS ORDERED: PRIMIDONE250 MG (08:36)
[2021-06-21] MEDS ORDERED: CLOPIDOGREL BIS75 MG (08:36)
[2021-06-21] MEDS ORDERED: DOLOGESIC-DF 51 EACH (08:36)
[2021-06-21] MEDS ORDERED: SEVELAMER CARB800 MG (08:36)
[2021-06-21] MEDS ORDERED: FAMOTIDINE20 MG (08:36)
[2021-06-21] MEDS ORDERED: AZELASTIN-FLUTI23 GM (08:37)
[2021-06-21] MEDS ORDERED: EAR HEALTH PLU500 MG (08:37)
[2021-06-21] MEDS ORDERED: DESLORATADINE5 MG (08:37)
== END 2021-06-23 19:32 | disposition home or self-care (01) | DRG 602 ==
LOC: SEC-K 12:25 → SURH 12:25
PROVIDERS: ADMIT Specialist; ATTEND Specialist
PROC: 02HV33Z Insertion of Infusion Device into Superior Vena Cava, Percutaneous Approach (ICD-10-PCS; principal; 2021-06-17)
PROC: B54CZZZ Ultrasonography of Left Lower Extremity Veins (ICD-10-PCS; 2021-06-17)
DX: L03.116 Cellulitis of left lower limb (principal); N18.6 End stage renal disease; I13.11 Hypertensive heart and chronic kidney disease without heart failure, with stage 5 chronic kidney disease, or end stage renal disease; B20 Human immunodeficiency virus [HIV] disease; D63.1 Anemia in chronic kidney disease; E11.22 Type 2 diabetes mellitus with diabetic chronic kidney disease; B95.62 Methicillin resistant Staphylococcus aureus infection as the cause of diseases classified elsewhere; Z99.2 Dependence on renal dialysis; I25.10 Atherosclerotic heart disease of native coronary artery without angina pectoris; E03.8 Other specified hypothyroidism; F43.23 Adjustment disorder with mixed anxiety and depressed mood

== ENCOUNTER 2021-06-28 10:08 | Outpatient (CLI) | payer OTHER ==
[~2021-06-28 10:08] MED LIST changes: +ALLERGY RELIEF10 M1; +AZELASTIN-FLUTI23 GM; +CLOPIDOGREL BIS75 MG; +DESLORATADINE5 MG; +DOLOGESIC-DF 51 EACH; +EAR HEALTH PLU500 MG; +FAMOTIDINE20 MG; +SEVELAMER CARB800 MG; +ST. JOSEPH ASPI81 M2
== END 2021-06-28 13:21 | disposition home or self-care (01) ==
LOC: WOUND MED 10:08
PROVIDERS: ATTEND Specialist
DX: I25.810 Atherosclerosis of coronary artery bypass graft(s) without angina pectoris (principal); L04.3 Acute lymphadenitis of lower limb; I11.0 Hypertensive heart disease with heart failure; J44.9 Chronic obstructive pulmonary disease, unspecified
CPT/HCPCS: 11042; A4930; A6219; A6223; A6251

== ENCOUNTER 2021-07-06 09:23 | Outpatient (CLI) | payer OTHER | END 2021-07-06 23:59 | disposition home or self-care (01) | LOC: WOUND MED 09:23 → WOUND CARE 09:23 | PROVIDERS: ATTEND Specialist | DX: L97.825 Non-pressure chronic ulcer of other part of left lower leg with muscle involvement without evidence of necrosis (principal) ==

== ENCOUNTER 2021-07-13 09:05 | Outpatient (CLI) | payer OTHER | END 2021-07-13 14:10 | disposition home or self-care (01) | LOC: WOUND MED 09:05 | PROVIDERS: ATTEND Specialist | DX: L97.825 Non-pressure chronic ulcer of other part of left lower leg with muscle involvement without evidence of necrosis (principal) | CPT/HCPCS: 11042; A4930; A6219; A6223; A6251 ==

== ENCOUNTER 2021-07-20 08:58 | Outpatient (CLI) | payer OTHER | END 2021-07-21 14:35 | disposition home or self-care (01) | LOC: WOUND MED 08:58 | PROVIDERS: ATTEND Specialist | DX: E11.621 Type 2 diabetes mellitus with foot ulcer (principal); L97.822 Non-pressure chronic ulcer of other part of left lower leg with fat layer exposed; Z79.4 Long term (current) use of insulin | CPT/HCPCS: A4930; A6223; G0463 ==

== ENCOUNTER 2021-07-21 09:31 | Emergency (ER) | payer OTHER ==
[~2021-07-21] VITALS: Ht 177.8 cm; Wt 74.8 kg
== END 2021-07-21 13:42 | disposition home or self-care (01) ==
LOC: ER 09:31
DX: S01.22XA Laceration with foreign body of nose, initial encounter (principal); S01.82XA Laceration with foreign body of other part of head, initial encounter; W18.31XA Fall on same level due to stepping on an object, initial encounter; Y93.89 Activity, other specified; Y92.488 Other paved roadways as the place of occurrence of the external cause

== ENCOUNTER 2021-08-29 12:05 | Emergency (ER) | payer OTHER ==
[~2021-08-29] VITALS: Ht 177.8 cm; Wt 75.3 kg
[2021-08-29] MEDS ORDERED: CLONAZEPAM0.5 MG PO (13:07)
[2021-08-29] MEDS ORDERED: JANUVIA50 MG PO (13:09)
== END 2021-08-29 14:46 | disposition home or self-care (01) ==
LOC: ER 12:05
DX: S00.83XA Contusion of other part of head, initial encounter (principal); W18.30XA Fall on same level, unspecified, initial encounter; Y93.89 Activity, other specified; Y92.017 Garden or yard in single-family (private) house as the place of occurrence of the external cause

== ENCOUNTER → 2021-08-31 11:35 | Outpatient (CLI) | payer OTHER ==
[~2021-08-31 11:35] MED LIST changes: +CLONAZEPAM0.5 MG PO; +JANUVIA50 MG PO
== END | disposition home or self-care (01) ==
LOC: PPH VACUNA 11:35
PROVIDERS: ATTEND Emergency Medicine Pediatric Emergency Medicine
DX: Z23 Encounter for immunization (principal)

== ENCOUNTER 2021-09-02 08:34 | Inpatient (IN) | payer OTHER ==
[~2021-09-02] VITALS: Ht 167.6 cm; Wt 68.0 kg
--- NOTE | 2021-09-02 08:59 | NUR ---
SE RECIBE PACIENTE ALERTA, ORIENTADO X 3 ESFERAS REFIERE TENER SANGRADO RECTAL HACE 3 DULCE SPTE SE DIALIZA 3 VECES EN SEMANA , PTE HIV. SE ESTIMAN S/V SE UBICA EN AREA DE OBSERVACION.
--- NOTE | 2021-09-02 09:56 | NUR ---
SE RECIBE PTE MASCULINO DE 81 YRS ALERTA CONCIETNE Y TRANQUILO EN COMOPANIA DE FAMILAIR. PTE ES EVALUADO POR EL BOUBACAR QUIEN ORDENA TRATMIENTO LA CUJAL SE EJECUTA.
== END 2021-09-12 17:21 | disposition home or self-care (01) | DRG 377 ==
LOC: ER 08:34 → MEDJ 12:28
PROVIDERS: ADMIT Specialist; ATTEND Specialist
PROC: 02HV33Z Insertion of Infusion Device into Superior Vena Cava, Percutaneous Approach (ICD-10-PCS; 2021-09-02)
PROC: 5A1D70Z Performance of Urinary Filtration, Intermittent, Less than 6 Hours Per Day (ICD-10-PCS; 2021-09-03)
PROC: 30243N1 Transfusion of Nonautologous Red Blood Cells into Central Vein, Percutaneous Approach (ICD-10-PCS; 2021-09-04)
PROC: 5A1D70Z Performance of Urinary Filtration, Intermittent, Less than 6 Hours Per Day (ICD-10-PCS; 2021-09-04)
PROC: 5A1D70Z Performance of Urinary Filtration, Intermittent, Less than 6 Hours Per Day (ICD-10-PCS; 2021-09-06)
PROC: 5A1D70Z Performance of Urinary Filtration, Intermittent, Less than 6 Hours Per Day (ICD-10-PCS; 2021-09-08)
PROC: 0DB78ZX Excision of Stomach, Pylorus, Via Natural or Artificial Opening Endoscopic, Diagnostic (ICD-10-PCS; principal; 2021-09-10)
PROC: 0DB68ZX Excision of Stomach, Via Natural or Artificial Opening Endoscopic, Diagnostic (ICD-10-PCS; 2021-09-10)
PROC: 5A1D70Z Performance of Urinary Filtration, Intermittent, Less than 6 Hours Per Day (ICD-10-PCS; 2021-09-10)
DX: K62.5 Hemorrhage of anus and rectum (principal); I13.2 Hypertensive heart and chronic kidney disease with heart failure and with stage 5 chronic kidney disease, or end stage renal disease; N18.6 End stage renal disease; K25.9 Gastric ulcer, unspecified as acute or chronic, without hemorrhage or perforation; K29.61 Other gastritis with bleeding; I50.22 Chronic systolic (congestive) heart failure; E11.22 Type 2 diabetes mellitus with diabetic chronic kidney disease; D63.8 Anemia in other chronic diseases classified elsewhere; I25.10 Atherosclerotic heart disease of native coronary artery without angina pectoris; Z21 Asymptomatic human immunodeficiency virus [HIV] infection status; Z99.2 Dependence on renal dialysis; Z95.818 Presence of other cardiac implants and grafts

== ENCOUNTER 2021-09-21 12:56 | Emergency (ER) | payer OTHER ==
[~2021-09-21] VITALS: Ht 177.8 cm; Wt 72.6 kg
== END 2021-09-21 15:38 | disposition home or self-care (01) ==
LOC: ER 12:56
DX: B34.8 Other viral infections of unspecified site (principal); N18.6 End stage renal disease; Z99.2 Dependence on renal dialysis; Z88.2 Allergy status to sulfonamides

== ENCOUNTER 2021-10-18 09:35 | Emergency (ER) | payer OTHER ==
[~2021-10-18] VITALS: Ht 177.8 cm; Wt 72.6 kg
[2021-10-18] MEDS ORDERED: AMBIEN10 MG (10:10)
== END 2021-10-18 14:56 | disposition home or self-care (01) ==
LOC: ER 09:35
DX: R53.81 Other malaise (principal); Z88.2 Allergy status to sulfonamides; I12.0 Hypertensive chronic kidney disease with stage 5 chronic kidney disease or end stage renal disease; N18.6 End stage renal disease; Z99.2 Dependence on renal dialysis; E11.22 Type 2 diabetes mellitus with diabetic chronic kidney disease; E03.9 Hypothyroidism, unspecified; E78.00 Pure hypercholesterolemia, unspecified; Z20.822 Contact with and (suspected) exposure to COVID-19; Z85.038 Personal history of other malignant neoplasm of large intestine